=== PATIENT | male | born 1955 | race Caucasian/White ===

== ENCOUNTER 2016-06-17 05:48 | Outpatient (CLI) | payer BC ==
[~2016-06-17] VITALS: Ht 182.9 cm; Wt 110.2 kg
--- OUTSIDE RECORDS SUMMARY | 2016-06-17 05:50 | XMS REPORT | Continuity of Care Document ---
Author Author [facility] Organization [facility] Address Unknown Phone Unavailable Care Team Providers Care Shoe Maker Name Role Phone Chris Jules PCP [phone] Source Comments Some departments are not documenting in the electronic medical record. If you do not see the information that you expected, contact Release of Information in the Health Information Management department at [phone] for further assistance in locating additional records.[facility] Active Allergies and Adverse Reactions No Known Allergies Current Medications Prescription Sig. Disp. Refills Start End Date Status Date INVOKANA 300 mg tablet 07/24/19 Active 16 gemfibrozil (LOPID) 600 08/09/19 Active mg tablet 16 HYDROcodone/acetaminophen 08/23/19 Active (NORCO; VICODIN) 5-325 mg 16 tablet losartan-hydrochlorothiaz 08/15/19 Active anne-marie (HYZAAR) 100-25 mg 16 tablet metFORMIN (GLUCOPHAGE) 08/23/19 Active 1,000 mg tablet 16 metoprolol XL (TOPROL XL) 08/15/19 Active 25 mg tablet 16 potassium chloride SR 08/09/19 Active (K-DUR) 20 mEq tablet 16 simvastatin (ZOCOR) 40 mg 08/15/19 Active tablet 16 pregabalin (LYRICA) 25 mg Take 300 mg by mouth Active capsule twice daily. methocarbamol (ROBAXIN) Take 750 mg by mouth four Active 750 mg tablet times daily. ibuprofen (MOTRIN) 800 mg Take 800 mg by mouth Active tablet every 6 hours as needed for Pain. amitriptyline (ELAVIL) 25 Take 25 mg by mouth at Active mg tablet bedtime daily. Active Problems Not on file Social History Tobacco Use Types Packs/Day Years Used Date Former Smoker Cigars Last Filed Vital Signs Vital Sign Reading Time Taken Blood Pressure 171/107 09/12/2015 2:28 PM CDT Pulse 76 09/12/2015 2:28 PM CDT Temperature 37.2 C (98.9 F) 09/12/2015 2:28 PM CDT Respiratory Rate 18 09/12/2015 2:28 PM CDT Height 1.829 m (6') 09/12/2015 2:28 PM CDT Weight 112.038 kg (247 lb) 09/12/2015 2:28 PM CDT Body Mass Index 33.49 09/12/2015 2:28 PM CDT Oxygen Saturation 97% 09/12/2015 2:28 PM CDT Plan of Care Health Maintenance Due Date Last Done Comments Hepatitis C Screening 1955 Physical (Comprehensive) 1964 Exam Pertussis Vaccine 1968 Tetanus Vaccine 1974 Colorectal Cancer 2007 Screening Influenza Vaccine 02/01/2016 Results from Last 3 Months Not on file
[2016-06-17] MEDS ORDERED: MULT1CAP27 PO (16:25)
[2016-06-17] MEDS ORDERED: METO-270 PO (16:25)
[2016-06-17] MEDS ORDERED: AMIT25TA9 PO (16:25)
[2016-06-17] MEDS ORDERED: CANA300T PO (16:25)
[2016-06-17] MEDS ORDERED: IBUP-1780 PO (16:25)
[2016-06-17] MEDS ORDERED: CHLO500T4 PO (16:25)
[2016-06-17] MEDS ORDERED: ASPI-586 PO (16:25)
[2016-06-17] MEDS ORDERED: LOSA1TAB70 PO (16:25)
[2016-06-17] MEDS ORDERED: METF1000 PO (16:25)
[2016-06-17] MEDS ORDERED: PREG300C PO (16:25)
[2016-06-17] MEDS ORDERED: HYDR-3812 PO (16:25)
[2016-06-17] MEDS ORDERED: SIMV40TA4 PO (16:25)
[2016-06-17] MEDS ORDERED: OMG1KC PO (16:25)
[2016-06-17] MEDS ORDERED: GEMF600T3 PO (16:25)
[2016-06-17] MEDS ORDERED: POTA20TA15 PO (16:25)
== END 2016-06-17 16:26 ==
LOC: PREOP 05:48
PROVIDERS: ATTEND Urology
DX: Z01.818 Encounter for other preprocedural examination (principal); N47.1 Phimosis

== ENCOUNTER 2016-06-19 06:29 | Day surgery (SDC) | payer BC ==
[~2016-06-19] VITALS: Ht 182.9 cm; Wt 110.2 kg
[~2016-06-19 06:29] MED LIST: AMIT25TA9 PO; ASPI-586 PO; CANA300T PO; CHLO500T4 PO; GEMF600T3 PO; HYDR-3812 PO; IBUP-1780 PO; LOSA1TAB70 PO; METF1000 PO; METO-270 PO; MULT1CAP27 PO; OMG1KC PO; POTA20TA15 PO; PREG300C PO; SIMV40TA4 PO
--- OUTSIDE RECORDS SUMMARY | 2016-06-19 06:32 | XMS REPORT | Continuity of Care Document ---
Author Author [facility] Organization [facility] Address Unknown Phone Unavailable Care Team Providers Care Ceramics Engineer Name Role Phone Chris Jules PCP [phone] Source Comments Some departments are not documenting in the electronic medical record. If you do not see the information that you expected, contact Release of Information in the Health Information Management department at [phone] for further assistance in locating additional records.[facility] Active Allergies and Adverse Reactions No Known [...]
--- OUTSIDE RECORDS SUMMARY | 2016-06-19 06:34 | XMS REPORT | Continuity of Care Document ---
Author Author [facility] Organization [facility] Address Unknown Phone Unavailable Care Team Providers Care Internet Application Developer Name Role Phone Chris Jules PCP [phone] Source Comments Some departments are not documenting in the electronic medical record. If you do not see the information that you expected, contact Release of Information in the Health Information Management department at [phone] for further assistance in locating additional records.[facility] Active Allergies and Adverse Reactions No [...]
[2016-06-19] MEDS ORDERED: NEOSPORIN + PAIN RELIEF CREAM 15 GM ONE (07:02)
[2016-06-19] MEDS ORDERED: fentaNYL INJECTION 100 MCG/2 ML AMP ONE (07:05)
[2016-06-19] MEDS ORDERED: LACTATED RINGERS 1,000 ML IV ONE (07:05)
[2016-06-19] MEDS ORDERED: proPOfol 200 MG/20 ML (DIPRIVAN) VIAL IV ONE ×2 (07:05→08:12)
[2016-06-19] MEDS ORDERED: ONDANSETRON 4 MG/2 ML (SDV) Z0FRAN ONE (07:05)
[2016-06-19] MEDS ORDERED: LIDOCAINE PF 2% 10 ML (XYLOCAINE) AMP ONE (07:05)
[2016-06-19] MEDS ORDERED: MIDAZOLAM 2 MG/2 ML (VERSED) VIAL ONE (07:06)
[2016-06-19] MEDS ORDERED: SEVOFLURANE (ULTANE) 15 ML INHAL SOLN ONE ×4 (07:07→08:45)
--- NOTE | 2016-06-19 07:07 | Progress Note-Post Operative ---
Post-Operative Progess Note Pre-Operative Diagnosis Phimosis Post-Operative Diagnosis same Post-Op Procedure Note Date of Procedure: Jun 19, 2016 Name of Procedure: circumcision Anesthesia Type general Estimated blood loss (mL): LESS THAN 50CC PEYTON LOVE MD Jun 19, 2016 7:07 am
--- NOTE | 2016-06-19 07:07 | Progress Note-Pre Operative ---
Pre-Operative Progress Note H&P Reviewed The H&P was reviewed, patient examined and no changes noted. Date H&P Reviewed: Jun 19, 2016 Time H&P Reviewed: 07:07 Pre-Operative Diagnosis: Phimosis PEYTON LOVE MD Jun 19, 2016 7:07 am
--- NOTE | 2016-06-19 07:09 | Discharge Inst-Urology ---
Discharge Inst-Urology Discharge Medications New, Converted, or Re-newed RX: RX on Chart Patient Instructions/Follow Up Plan Please make appointment to been seen in office in 2 weeks. Ice in RR and at home for 6hrs and then PRN Showers, no bath Increase oral fluids for 48 hours and then as needed. Diet and Activity as tolerated. If questions or concerns contact your physician Or seek help at emergency department. PEYTON LOVE MD Jun 19, 2016 7:09 am
[2016-06-19] MEDS ORDERED: ceFAZolin 1 GM/NS 50 ML IVPB IV ONE ×2 (07:15)
[2016-06-19 07:27] VITALS: BP 145/94
[2016-06-19] MEDS ORDERED: LACTATED RINGERS 1,000 ML IV SCH (07:30)
[2016-06-19] MEDS ORDERED: ONDANSETRON 4 MG/2 ML (SDV) Z0FRAN IVP PRN (09:00)
[2016-06-19] MEDS ORDERED: MEPERIDINE (DEMEROL) INJ 50 MG/ML IVP PRN (09:00)
[2016-06-19] MEDS: morphine INJ 10 MG/ML 1ML (SYR OR VIAL) IVP PRN ×2 (09:20→09:25)
[2016-06-19 09:50] VITALS: BP 145/94
[2016-06-19] MEDS ORDERED: HYDR-3731 PO (09:58)
[2016-06-19 10:20] VITALS: BP 138/90
[2016-06-19 10:40] VITALS: BP 138/90
--- NOTE | 2016-06-19 13:10 | OPERATIVE REPORT ---
PROCEDURE PHYSICIAN: PEYTON LOVE DATE OF PROCEDURE: 06/19/2016 PREOPERATIVE DIAGNOSIS: Phimosis. POSTOPERATIVE DIAGNOSIS: Phimosis. OPERATION: Circumcision. SURGEON: Enrique. ANESTHESIA: General. COMPLICATIONS: None. PROCEDURE: Under satisfactory general anesthesia, the patient supine position, the genitalia were prepped and draped in usual sterile fashion. Two circular incisions were made; one in the foreskin at the level of walters glandis and one in the mucosa, proximal to the walters glandis. The excess foreskin was sharply excised. Bleeders were either cauterized or ligated with 4-0 chromic catgut. Hemostasis was complete. The mucosa and the skin were approximated with interrupted 4-0 Vicryl sutures. Neosporin plus pain ointment and a light dressing was applied. This patient tolerated the procedure and anesthesia well and was sent to recovery room in stable condition. Instructions were given to his . Job ID: [id number] Dictated Date: 06/19/2016 08:53:11 Laboratory Manager Date: 06/19/2016 13:06:59 / hortencia
== END 2016-06-19 10:40 | disposition home or self-care (01) ==
LOC: SDC 06:29
PROVIDERS: ATTEND Urology
DX: N47.1 Phimosis (principal); E11.9 Type 2 diabetes mellitus without complications; Z11.2 Encounter for screening for other bacterial diseases
CPT/HCPCS: 82962; 87081

== ENCOUNTER 2020-09-13 05:29 | Outpatient (RCR) | payer BC ==
[~2020-09-13 05:29] MED LIST changes: +ACHD5005 PO; -GEMF600T3 PO; +GEMF600T88 PO; +HYDR-3731 PO; -HYDR-3812 PO; +LOSA1TAB23 PO; -LOSA1TAB70 PO; +METF-399 PO; -METF1000 PO; -METO-270 PO; +MTP25TSR PO; +SIMV40TA25 PO; -SIMV40TA4 PO
[2020-09-15] MEDS ORDERED: OMEP20CA18 PO (10:02)
== END 2020-09-13 13:06 | disposition home or self-care (01) ==
LOC: PREOP 05:29
PROVIDERS: ATTEND Internal Medicine
DX: Z01.812 Encounter for preprocedural laboratory examination (principal); Z20.822 Contact with and (suspected) exposure to COVID-19
CPT/HCPCS: 87635

== ENCOUNTER 2020-09-15 08:49 | Day surgery (SDC) | payer BC ==
--- NOTE | 2020-09-11 08:58 | HISTORY AND PHYSICAL ---
DATE OF SERVICE: EGD HISTORY AND PHYSICAL HISTORY OF PRESENT ILLNESS: The patient is a 65-year-old white male seen for workmen's comp related left lumbar radiculopathy. He had bilateral lumbar radiculopathy, worse on the right side. Reports that he still has intermittent neuropathic pain, stabbing sensation in the foot that comes and goes. He is still able to work light activities predominantly utilizing about 3 hydrocodone daily with stable usage for many years. He is on amitriptyline 50 mg at bedtime, did not get previous benefit from Lyrica. Other medical issues include type 2 diabetes and hyperlipidemia with no known history of coronary artery disease. He denies any increase in weakness or bowel or bladder control problems and has been sleeping relatively well at night. He did report over the past month or so, he has been having dysphagia to solids 20 in the lower epigastric area. He has to drink fluids to force food bolus down at that time, which causes discomfort for a while. He reports minimal heartburn symptoms and is not on any acid blocking type medication. He had a friend recently diagnosed with esophageal cancer, which is understandably concerning in regard to his symptoms. He does not smoke or currently drink alcohol. He reports that his weight has been stable and by our chart over the past 2 months, he is actually up 5 pounds to 247.6. He feels he has been retaining more fluid. He denies dyspnea on exertion, orthopnea, PND or pedal edema. PHYSICAL EXAMINATION: GENERAL: Reveals a white male, who did not appear to be in acute distress. VITAL SIGNS: Weight 247.6 pounds, blood pressure 130/70. CHEST: Clear. CARDIOVASCULAR: Regular rate and rhythm without murmur, S3 or S4. ABDOMEN: Soft, supple without mass, organomegaly or tenderness. EXTREMITIES: Reveal 1+ edema to the mid tibia bilaterally. He has 4+ strength of the right leg, 5+ on the left, but diminished sensation in the right foot and ankle. No sores or callus formation are noted. ASSESSMENT AND PLAN: 1. Bilateral lumbar radiculopathy, worse on the right side. Continue hydrocodone and amitriptyline at bedtime. No pain medication side effects. Continued benefits outweigh any potential risk on lower dose narcotic therapy. 2. Dysphagia. The patient is being set up for EGD evaluation. Prep instructions were given and questions answered. Regular follow up in 3 months with a basic metabolic panel and an A1c level. 3. Type 2 diabetes mellitus. Blood tests were not obtained. Discussed the importance of weight loss, portion control in regards to his diabetes as well as likely reflux. Further recommendations pending EGD evaluation. Job ID: [id number] DocumentID: [id number] Dictated Date: 09/07/2020 17:40:12 Weaver Needle Loom Date: 09/07/2020 18:33:13 Dictated By: ERASMO MONROY MD
[2020-09-15] VITALS (9 sets, daily range): BP systolic 114–127; BP diastolic 58–80
[~2020-09-15] VITALS: Ht 182.9 cm; Wt 112.3 kg
[2020-09-15] MEDS ORDERED: LACTATED RINGERS 1,000 ML IV STA (08:50)
[2020-09-15] MEDS ORDERED: LACTATED RINGERS 1,000 ML IV ONE (08:54)
[2020-09-15] MEDS ORDERED: LIDOCAINE JELLY 2% 6 ML SYRINGE MM PRN (09:00)
[2020-09-15] MEDS ORDERED: HURRICAINE EXT TUBE (BENZOCAINE) XX PRN (09:00)
[2020-09-15] MEDS ORDERED: PROPOFOL INJECTION 50 ML IV ONE (09:16)
[2020-09-15] MEDS ORDERED: MIDAZOLAM 2 MG/2 ML (VERSED) VIAL ONE (09:16)
[2020-09-15] MEDS ORDERED: LIDOCAINE JELLY 2% 6 ML SYRINGE ONE (09:28)
[2020-09-15] MEDS ORDERED: HURRICAINE EXT TUBE (BENZOCAINE) ONE (09:28)
--- NOTE | 2020-09-15 10:00 | Pre-Op Note & Conscious Sedat ---
Pre-Operative Progress Note H&P Reviewed The H&P was reviewed, patient examined and no changes noted. Date H&P Reviewed: Sep 15, 2020 Time H&P Reviewed: 09:15 Conscious Sedation Pre-Proced ASA Score 3 For ASA 3 and 4: Consider anesthesia and medical clearance. Also, for patients with a history of failed moderate sedation consider anesthesia. Airway Lungs Heart ASA score ASA 1: a normal healthy patient ASA 2: a patient with a mild systemic disease (mid diabetes, controlled hypertension, obesity ASA 3: a patient with a severe systemic disease that limits activity (angina, COPD, prior Myocardial infarction) ASA 4: a patient with an incapacitating disease that is a constant threat to life (CHF, renal failure) ASA 5: a moribund patient not expected to survive 24 hrs. (ruptured aneurysm) ASA 6: a declared brain- patient whose organs are being harvested. For emergent operations, add the letter E after the classification Mallampati Classification Grade 3 Sedation Plan Analgesia, Amnesia, Plan communicated to team members, Discussed options with patient/fam, Discussed risks with patient/fam The patient is an appropriate candidate to undergo the planned procedure, sedation, and anesthesia. The patient immediately re-assessed prior to indication. ERASMO MONROY MD Sep 15, 2020 10:00
[2020-09-15] MEDS ORDERED: OMEP20CA18 PO (10:02)
--- NOTE | 2020-09-15 10:54 | Anesthesia-General Post-Op ---
MAC Patient Condition Mental Status/LOC: Same as Preop Cardiovascular: Satisfactory Nausea/Vomiting: Absent Respiratory: Satisfactory Pain: Controlled Complications: Absent Post Op Complications Complications None Follow Up Care/Instructions Patient Instructions None needed. Anesthesiology Discharge Order Discharge Order Patient is doing well, no complaints, stable vital signs, no apparent adverse anesthesia problems. No complications reported per nursing. SANJAY BAILEY CRNA Sep 15, 2020 10:54
--- NOTE | 2020-09-15 17:00 | OPERATIVE REPORT ---
DATE OF SERVICE: EGD SUMMARY INDICATION FOR THE PROCEDURE: Dysphagia. DESCRIPTION OF PROCEDURE: The patient was placed in the left lateral decubitus position. The endoscope was inserted into the oral cavity and under direct visualization, esophagus was intubated. Endoscope was passed down the esophagus, stomach and second portion of the duodenum. Careful inspection was made as the endoscope was withdrawn. The patient tolerated the procedure well. FINDINGS: The posterior pharynx, epiglottis, arytenoid aperture, true and false vocal folds were unremarkable at the visual inspection. The proximal and mid esophagus were unremarkable. Several shallow areas of ulceration were noted at the Z line compatible with LA grade A erosive esophagitis. There was no evidence for stricture formation. No obvious evidence for Maciel's change with a small sliding hiatal hernia. Biopsies x2 were obtained and submitted for histopathology. The cardia and fundus of the stomach were unremarkable. There was some antral erythema. An antral biopsy was obtained and submitted for histopathology and Helicobacter evaluation. The pylorus, the pyloric channel, duodenal bulb and second portion of duodenum were unremarkable. ASSESSMENT: Findings compatible with LA grade A erosive esophagitis were noted without evidence for Maciel's change or stricture formation. The patient also had evidence for antral gastritis. Biopsies from the GE junction and antrum were obtained and submitted for histopathology and Helicobacter evaluation. Omeprazole 20 mg daily will be initiated and discussed non-medication management of reflux issues as well. The patient will keep his regular schedule followup appointment next month. Job ID: [id number] DocumentID: [id number] Dictated Date: 09/15/2020 10:25:39 Instructor Watch Assembly Date: 09/15/2020 16:59:26 Dictated By: ERASMO MONROY MD
== END 2020-09-15 10:58 | disposition home or self-care (01) ==
LOC: ENDO 08:49
PROVIDERS: ATTEND Internal Medicine
DX: K20.90 Esophagitis, unspecified without bleeding (principal); K29.70 Gastritis, unspecified, without bleeding; E11.9 Type 2 diabetes mellitus without complications; E78.5 Hyperlipidemia, unspecified; I10 Essential (primary) hypertension; M54.16 Radiculopathy, lumbar region; Z87.891 Personal history of nicotine dependence; Z79.891 Long term (current) use of opiate analgesic; Z79.84 Long term (current) use of oral hypoglycemic drugs; Z79.1 Long term (current) use of non-steroidal anti-inflammatories (NSAID); Z79.899 Other long term (current) drug therapy
CPT/HCPCS: 82962; 88305